=== PATIENT | female | born 1980 | race Two or more races ===

== ENCOUNTER 2017-01-15 09:21 | Emergency (ER) | payer BC, OTHER ==
[2017-01-15 09:51] VITALS: BP 128/70
== END 2017-01-15 09:51 | disposition home or self-care (01) ==
LOC: ED 09:21
DX: S96.811A Strain of other specified muscles and tendons at ankle and foot level, right foot, initial encounter (principal); X58.XXXA Exposure to other specified factors, initial encounter; Y93.89 Activity, other specified; Y99.8 Other external cause status; Y92.89 Other specified places as the place of occurrence of the external cause